=== PATIENT | male | born 1975 | race Caucasian/White ===

== ENCOUNTER 2020-08-13 14:17 | Emergency (ER) | payer SELFPAY ==
[~2020-08-13 14:17] MED LIST: Iopamidol-370 76% 500 ML 1 ML ONE
[2020-08-13 15:11] LABS: #Basophils 0.1 thou/uL (0.0-0.2); #Eosinphils 0.2 thou/uL (0.0-0.7); #Lymphocytes 2.6 thou/uL (1.20-3.40); #Monocytes 0.5 thou/uL (0.11-0.59); #Neutrophils 5.3 thou/uL (1.40-6.50); %Basophils 0.8 % (0.0-1.0); %Monocytes 5.4 % (0.0-10.0); %Neutrophils 61.8 % (42.0-75.0); Mean Corpuscular HGB CONC 34.2 g/dL (32.0-36.0); Mean Corpuscular Hemoglobin 31.8 pg (27.0-31.0); Mean Corpuscular Volume 92.9 fL (78.0-98.0); Mean Platelet Volume 8.2 fL (7.4-10.4); Platelet Count 261 thou/uL (130-400); RBC Distribution Width 15.1 % (11.5-14.5); Red Blood Cell (RBC) Count 5.34 mill/uL (4.70-6.10); White Blood Cell (WBC) Count 8.6 thou/uL (4.8-10.8)
[2020-08-13] MEDS ORDERED: Ondansetron PF 4 MG/2 ML Vial ONE (15:40)
[2020-08-13] MEDS ORDERED: Morphine 4 MG/ML VIAL ONE ×2 (15:40→17:31)
--- NOTE | 2020-08-13 16:57 | CT ---
CT ABDOMEN AND PELVIS WITH IV CONTRAST 08/13/2020 CLINICAL INFORMATION: Left upper quadrant abdominal pain for 2 weeks. COMPARISON: None. Technique: Multiple contiguous axial CT images are obtained through the abdomen and pelvis with IV contrast. Cor onal reformatted images are provided. FINDINGS: Lower Chest: Lung bases are clear. Vessels: Abdominal aorta is normal in caliber. Abdomen: Portal vein:Patent Gallbladder: Within normal limits for CT imaging. Liver: Diminished in attenuation relative to the spleen suggesting fatty infiltration. Liver is enlar ged in craniocaudal dimensions measuring 20.5 cm. Spleen: within normal limits. Pancreas: 1.8 cm low-density lesion in the tail of the pancreas. Further evaluation with MRI is recom mended. Adrenals: within normal limits. Kidneys: Subcentimeter too small to characterize hypodense lesion inferior pole left kidney. Kidneys otherwise have a normal CT appearance bilaterally. Bowel: Scattered colonic diverticula are seen in the descending and sigmoid colon. Loops of small bow el are normal in caliber. Appendix: The appendix is visualized and normal in caliber. Peritoneum: No ascites or free air; no fluid collection. Mesentery and Retroperitoneum: No enlarged mesenteric or retroperitoneal lymph nodes. Abdominal Wall: Small fat-containing umbilical hernia. Pelvis: Reproductive Organs: No pelvic masses. Bladder: within normal limits. Bones: Degenerative changes are seen in the lumbar spine. Trace retrolisthesis of L3 on L4 is present IMPRESSION: 1. Hypodense pancreatic tail mass. MRI abdomen with and without IV contrast is recommended for furthe r evaluation. 2. Mild hepatomegaly with fatty infiltration of the liver. 3. Colonic diverticulosis. 4. No acute findings are seen in the abdomen or pelvis.
[2020-08-13 17:27] LABS: Albumin 3.9 g/dL (3.5-5.0)
[2020-08-13 17:29] LABS: Calcium 8.8 mg/dL (7.8-10.44); Chloride 100 mmol/L (98-107); Potassium 3.8 mmol/L (3.5-5.1); Sodium 136 mmol/L (136-145)
[2020-08-13 17:30] LABS: Glucose 109 mg/dL (70-105); Protein, Total 6.9 g/dL (6.0-8.3)
[2020-08-13 17:32] LABS: Anion Gap 14 mmol/L (10-20); Bilirubin, Total 0.3 mg/dL (0.2-1.2); Carbon Dioxide 26 mmol/L (22-29)
[2020-08-13 17:33] LABS: Alkaline Phosphatase 57 U/L (40-110); Calc. Creatinine Clearance 0 mL/min (70-130); Estimated GFR-MDRD 68
[2020-08-13 17:34] LABS: BUN (Urea Nitrogen) 24 mg/dL (8.9-20.6)
[2020-08-13 17:35] LABS: AST (SGOT) 22 U/L (5-34)
[2020-08-13 17:36] LABS: ALT (SGPT) 28 U/L (8-55); Lipase 23 U/L (8-78)
--- NOTE | 2020-08-13 17:46 | RAD ---
Portable frontal chest radiograph: 08/13/2020 COMPARISON: None HISTORY: Left upper quadrant pain for 2 weeks FINDINGS: Lungs are clear. Heart and mediastinal contours appear within normal limits. IMPRESSION: No acute findings.
== END 2020-08-13 19:19 | disposition home or self-care (01) ==
LOC: ERS 14:17
DX: K86.9 Disease of pancreas, unspecified (principal); E11.9 Type 2 diabetes mellitus without complications; E78.00 Pure hypercholesterolemia, unspecified; E03.9 Hypothyroidism, unspecified; Z79.899 Other long term (current) drug therapy; Z79.4 Long term (current) use of insulin
CPT/HCPCS: 36415; 71045; 74177; 80053; 82150; 83690; 84484; 85025; 93005; 96374; 96375; 96376; J2270; J2405; Q9967